=== PATIENT | male | born 1990 | race Caucasian/White ===

== ENCOUNTER 2020-03-09 15:02 | Emergency (ER) | payer MEDICAID, SELFPAY ==
--- NOTE | 2020-03-09 15:39 | ED.OVERDOSE ---
HPI - Overdose General Stated Complaint: Unresponsive Time Seen by Provider: 03/09/20 15:38 History of Present Illness HPI Narrative: Patient is a 29-year-old male with a history of polysubstance abuse. Presented today found face down in a parking lot. On EMS arrival patient arousable. Admitted to using PCP. Unable to give detail. Patient denies any suicidal homicidal ideation. Refused to answer any more questions. Related Data Allergies Allergy/AdvReac Type Severity Reaction Status Date / Time SEAFOOD Allergy Unknown HIVES Uncoded 11/08/19 16:14 Review of Systems Review of Systems: Unable to obtain secondary to patient's condition. Yes Unobtainable due to mental status Physical Exam Vital Signs: Appearance: Alert. Oriented X1. No acute distress. Eyes: Pupils equal, round and reactive to light. ENT: Pharynx normal. Neck: Normal inspection. Neck supple. No lymph nodes noted. No crepitus CVS: Normal heart rate and rhythm. Pulses normal. Normal S1 and S2 Respiratory: No respiratory distress. Breath sounds normal. No Wheezing. No rales Abdomen: Soft and nontender. No rigidity. No distention. good BS x4 Skin: Skin warm and dry. Normal skin color. Normal skin turgor. Extremities: No lower extremity edema. Neurovascular intact to all extremities. No Lacerations. No Rash Neuro: Oriented X 1. No motor deficit. No sensory deficit. Moving all extermities. No slurred speech MDM - Overdose MDM Narrative Medical decision making narrative: Patient ambulated well in the emergency department. Refused to answer questions. Admits to using PCP. Will monitor carefully. Will attempt to have patient contact his family for close monitoring at home. Medical Records Attestation: I reviewed the patient's medical records. Lab Data Attestation: I reviewed the patient's lab results. Discharge Plan Discharge Clinical Impression: Substance abuse, PCP abuse Patient Disposition: Home, Self-Care Instructions: Polysubstance Abuse (ED) Referrals: [facility] [Physician] - 2 days (Please stop using recreational drugs. Using recreational drugs can kill you. Please go to detox.)
[2020-03-09 15:58] VITALS: BP 140/80; BP 147/84; PULSE 70; PULSE 74; RESP 16; TEMP 36.3; O2SAT 99; BMI 27.3
--- NOTE | 2020-03-09 16:21 | MHC.CARE ---
CARE Team offered Pt support and resources. Pt declined at this time.
[2020-03-09 16:30] LABS: Glucose, Whole Blood 63 mg/dL (60-115)
--- NOTE | 2020-03-09 16:54 | PC.NURSE ---
TONEY JORDAN AWARE OF PATIENT REFUSED LAB WORK .
--- NOTE | 2020-03-09 16:57 | PC.NURSE ---
POC 63, pt given snack and orange juice. Pt refusing blood work at this time.
[2020-03-09 17:25] VITALS: BP 139/75; PULSE 64; RESP 17; TEMP 37; O2SAT 99
--- NOTE | 2020-03-09 17:30 | PC.NURSE ---
Pt more alert/awake, able to recall events prior to admit to ED, admits to ETOH and PCP use. Requesting to be discharged
[2020-03-09 17:44] LABS: Glucose, Whole Blood 82 mg/dL (60-115)
== END 2020-03-09 18:01 | disposition home or self-care (01) ==
LOC: HO.ED 16:13
PROVIDERS: Emergency Provider Emergency Medicine Emergency Medical Services; PCP Internal Medicine
DX: F16.19 Hallucinogen abuse with unspecified hallucinogen-induced disorder (principal); Z71.51 Drug abuse counseling and surveillance of drug abuser
CPT/HCPCS: 82947; 99283

== ENCOUNTER 2020-12-15 15:41 | Outpatient (REF) | payer MEDICAID, SELFPAY ==
[2020-12-15 16:30] LABS: Influenza A PCR NEGATIVE (Negative); Influenza B PCR NEGATIVE (Negative); Resp Syncy Virus RNA Qual PCR NEGATIVE (Negative); SARS COV2 PCR INHOUSE NEGATIVE (Negative)
== END 2020-12-15 15:42 | disposition home or self-care (01) ==
LOC: HO.LNP 15:41
PROVIDERS: Visit Provider Internal Medicine
DX: Z20.822 Contact with and (suspected) exposure to COVID-19 (principal); R19.7 Diarrhea, unspecified; R11.10 Vomiting, unspecified
CPT/HCPCS: 0241U

== ENCOUNTER 2021-12-23 12:55 | Outpatient (REF) | payer MEDICAID, SELFPAY ==
[2021-12-23 13:56] LABS: Appearance Urine Clear; Color Urine Yellow; Glucose Urine UA Negative (Negative); Leukocyte Esterase Urine Negative (Negative); Nitrite Urine Negative (Negative); PH 6.5 (5.0-9.0); UMIC TRIGGER UACC YES; Urine Blood Negative (Negative); Urine Ketones 15 mg/dL (Negative); Urine Protein 30 (1+) mg/dL (Neg-Trace)
[2021-12-23 14:01] LABS: Bacteria Urine None Seen (None Seen); Hyaline Casts Urine 0-2 /LPF (0-2); RBC Urine 0-2 /HPF (0-2); Squamous Epithelial Cell Urine 0-2 /HPF (0-2); WBC Urine 0-5 /HPF (0-5)
[2021-12-23 14:42] LABS: Syphilis Screen Nonreactive (Nonreactive)
[2021-12-23 18:18] LABS: CT PCR NOT DETECTED (Not Detect.); NG PCR NOT DETECTED (Not Detect.)
[2021-12-24 09:25] LABS: HIV AB/AG Nonreactive (Nonreactive); HIV Num 1 0.11 S/CO (0.00-0.99)
== END 2021-12-23 12:56 | disposition home or self-care (01) ==
LOC: HO.10HDL 12:55
PROVIDERS: Visit Provider Internal Medicine
DX: Z11.3 Encounter for screening for infections with a predominantly sexual mode of transmission (principal); Z11.4 Encounter for screening for human immunodeficiency virus [HIV]
CPT/HCPCS: 81001; 86780; 87086; 87389; 87491; 87591